=== PATIENT | male | born 1945 | race Caucasian/White ===

== ENCOUNTER → 2017-10-16 | Outpatient (CLI) | payer MEDICARE ==
--- NOTE | 2017-10-17 13:26 | PE ---
Nuclear medicine PET/CT HISTORY: Melanoma, initial Patient received 13.3 mCi F-18 FDG intravenously. Delayed scanning performed through the whole body, an attenuation correction and localization CT scan also performed. No comparisons Head and neck: No suspicious hypermetabolic uptake. No evident adenopathy. CHEST: There is extensive abnormal soft tissue, adenopathy in the right axilla, subpectoral location on the right with associated hypermetabolic uptake, SUV 7-11. Emphysematous changes are present withi n the lungs. There is a right lower lobe lung nodule measuring 12 mm. Additional smaller nodular dens ities are present within the right lung on axial image 137, 131 and 145 and possibly in the left lowe r lobe axial image 138, there is no pleural or pericardial effusion. Heart is borderline enlarged. Th ere are coronary artery calcifications present. Abdomen pelvis: No evident liver mass. No retroperitoneal adenopathy. No suspicious hypermetabolic up take. There is a large cyst associated with the posterior left kidney measuring 5.6 cm. Lower pole ri ght kidney shows an exophytic cyst measuring 5 cm. The urinary bladder shows wall thickening likely d ue to chronic outlet obstruction, prostate is enlarged. No evident adenopathy or suspicious hypermeta bolic uptake Osseous structures shows no suspicious hypermetabolic uptake. Degenerative disc changes are present w ithin the lumbar spine. IMPRESSION: Extensive adenopathy within the right chest as described. Indeterminate lung nodules.
== END | disposition home or self-care (01) ==
LOC: RADPETMAIN 07:03
PROVIDERS: ATTEND Internal Medicine Hematology & Oncology
DX: C43.60 Malignant melanoma of unspecified upper limb, including shoulder (principal); R59.0 Localized enlarged lymph nodes; R91.1 Solitary pulmonary nodule
CPT/HCPCS: 78816; A9552

== ENCOUNTER → 2017-10-25 | Outpatient (CLI) | payer MEDICARE ==
--- NOTE | 2017-10-25 18:45 | MR ---
EXAMINATION TYPE: MR brain wo/w con DATE OF EXAM: 10/25/2017 COMPARISON: Correlation PET/CT 10/16/2017 HISTORY: 71-year-old male history of malignant melanoma, Headache TECHNIQUE: Multiplanar, multisequence images of the brain and brainstem were acquired before and aft er administration of 7.5 mL IV Gadavist. Diffusion weighted imaging is performed. FINDINGS: No evidence for acute infarction, hemorrhage, mass, mass effect, midline shift, herniation, effacemen t of basal cisterns, or extra-axial fluid collection. The ventricles are age-appropriate. There is mild generalized supratentorial volume loss. Dominant right vertebral artery. The left vertebral artery is not well seen. Otherwise, the major int racranial flow voids are intact. T2/FLAIR weighted sequences show moderate to severe patchy and confluent bright signal change within the subcortical, deep, and periventricular regions of both cerebral hemispheres. Additional patchy in creased T2 signal is present in the bilateral paramedian tami. Midline structures demonstrate normal morphology. The craniocervical junction is normal. Post contrast images demonstrate no evidence of pathologic enhancement. Dural venous sinuses are pat ent. Mild mucosal thickening within the ethmoid air cells. Globes are intact. IMPRESSION: 1. No evidence for brain metastases. 2. No acute intracranial abnormality seen. 3. Moderate to severe burden of patchy and confluent bright white matter change likely relating to ch ronic small vessel ischemic disease. 4. The left vertebral artery is not clearly seen. It may be hypoplastic. If concern for arterial occl usion, consider carotid Doppler ultrasound which also evaluates the vertebral arteries in the neck.
== END | disposition home or self-care (01) ==
LOC: RADMRIMAIN 11:53
PROVIDERS: ATTEND Internal Medicine Hematology & Oncology
DX: C43.60 Malignant melanoma of unspecified upper limb, including shoulder (principal); R90.82 White matter disease, unspecified; R51 Headache
CPT/HCPCS: 82565; 70553; 36415; A9581

== ENCOUNTER → 2018-05-03 | Outpatient (CLI) | payer OTHER ==
[2018-05-03 14:39] LABS: Basophils # (A) 0.1 k/uL (0-0.2); Basophils % (A) 1 %; Eosinophils # (A) 0.3 k/uL (0-0.7); Eosinophils % (A) 3 %; HCT 42.2 % (39.0-53.0); Lymphocytes # (A) 2.3 k/uL (1.0-4.8); Lymphocytes % (A) 20 %; MCH 30.9 pg (25.0-35.0); MCHC 33.2 g/dL (31.0-37.0); MCV 93.1 fL (80.0-100.0); Mean Platelet Volume 6.6; Monocytes # (A) 0.8 k/uL (0-1.0); Monocytes % (A) 7 %; Neutrophils % (A) 68 %; Platelet Count 307 k/uL (150-450); RBC 4.54 m/uL (4.30-5.90); RDW 13.5 % (11.5-15.5); WBC 11.7 k/uL (3.8-10.6)
[2018-05-03 19:04] LABS: Anion Gap 5.5 mmol/L (4.00-12.00); Calcium 8.6 mg/dL (8.7-10.3); Carbon Dioxide 30.5 mmol/L (21.6-31.8)
== END | disposition home or self-care (01) ==
LOC: LABWHC1 14:03
PROVIDERS: ATTEND Urology
DX: Z01.812 Encounter for preprocedural laboratory examination (principal); R31.0 Gross hematuria
CPT/HCPCS: 36415; 80048; 85025

== ENCOUNTER → 2018-05-05 | Day surgery (SDC) | payer OTHER ==
[~2018-05-05] MED LIST: DEXAMETHASONE SOD PHOSPHATE 10 MG/ML 1 ML VIAL IV ONE; FUROSEMIDE 10 MG/ML 2 ML VIAL ONE; GLYCOPYRROLATE 0.2 MG/ML 2 ML VIAL ONE; LACTATED RINGERS 1,000 ML IV SCH; LIDOCAINE 1% 20 ML VIAL (10MG/ML) FOR IV START INTRADERMA PRN; LIDOCAINE 1% INJ 10MG/ML (20 ML MDV) ONE; MIDAZOLAM (PF) 2 MG/2 ML VIAL IV PRN; MIDAZOLAM 2 MG/2 ML VIAL ONE; NEOSTIGMINE 1 MG/ML 10 ML VIAL ONE; ONDANSETRON 4 MG/2 ML VIAL IVP ONE; PROPOFOL 10 MG/ML 20 ML VIAL IV ONE; ROCURONIUM BROMIDE 10 MG/ML 10 ML VIAL IV ONE; SCOPOLAMINE 1.5MG/72HR PATCH TRANSDERM ONE; ceFAZolin 1,000 MG in DEXTROSE/WATER 1 50ML.BAG IVPB ONE; ePHEDrine SULFATE/0.9% NACL/PF 50 MG/5 ML SYRINGE IV ONE; fentaNYL (PF) 50 MCG/ML 2 ML AMP IVP ONE; fentaNYL (PF) 50 MCG/ML 2 ML AMP ONE
--- NOTE | 2018-05-05 06:36 | P.GSHP ---
History of Present Illness H&P Date: 05/05/18 Chief Complaint: Hematuria The patient is a 72-year-old male who has experienced gross hematuria since starting Keytruda for treatment of melanoma. A PET computed tomography scan in September 2017 showed bilateral renal cysts and bladder wall thickening. Cystoscopy showed some clot within the bladder, as well as telangiectasia adjacent to the left ureteral orifice. He now comes for cystoscopy, evacuation of clot, and resection of any abnormalities seen. - Cardiovascular Cardiovascular: Reports high blood pressure - Genitourinary (Male) Genitourinary: Reports dysuria, Reports hematuria, Reports urinary frequency, Denies flank pain Past Medical History Past Medical History: GERD/Reflux, Hyperlipidemia, Hypertension Additional Past Medical History / Comment(s): MELANOMA, ARM. HAS BEEN ON K-TRUDA , PT BELIEVES THIS HAS CAUSED HIS BLADDER BLEEDING. History of Any Multi-Drug Resistant Organisms: None Reported Additional Past Surgical History / Comment(s): RIGHT LEG SHRAPNEL REMOVED Past Anesthesia/Blood Transfusion Reactions: No Reported Reaction Past Psychological History: Anxiety Smoking Status: Former smoker Past Alcohol Use History: Daily Additional Past Alcohol Use History / Comment(s): QUIT SMOKER 2002, 1PPD. Past Drug Use History: None Reported Medications and Allergies Home Medications Medication Instructions Recorded Confirmed Type Atenolol [Tenormin] 25 mg PO BID 11/01/13 05/03/18 History Temazepam [Restoril] 15 mg PO HS 11/01/13 05/03/18 History Amlodipine Unknown Dose 1 tab PO BID 05/03/18 History Bismuth Subsalicylate 1 dose PO DIRECTED 05/03/18 05/03/18 History [Pepto-Bismol] Calcium Carbonate [Tums] 1 - 2 tab PO DIRECTED 05/03/18 05/03/18 History Allergies Allergy/AdvReac Type Severity Reaction Status Date / Time No Known Allergies Allergy Verified 05/03/18 15:21 Surgical - Exam - General well developed, well nourished, no distress - Neck no masses, trachea midline - Respiratory normal respiratory effort, clear to auscultation - Cardiovascular Rhythm: regular Abnormal Heart Sounds: no systolic murmur, no diastolic murmur, no rub, no S3 Gallop, no S4 Gallop, no click, no other - Abdomen Abdomen: soft, non tender, no guarding, no rigid, no rebound - Genitourinary normal penis with no external lesions, testicles non-tender right: scrotal mass/hydrocele - Psychiatric oriented to time, oriented to person, oriented to place, speech is normal, memory intact Right axillary adenopathy Assessment and Plan (1) Gross hematuria Status: Acute Code(s): R31.0 - GROSS HEMATURIA SNOMED Code(s): 229999612 Plan: Cystoscopy, evacuation of clot, transurethral resection of any lesions noted. The rationale for this has been reviewed in detail with the patient, both to prevent ongoing hematuria as well as detect any possible malignancy. The procedure was reviewed in detail, including potential risks which include anesthesia, bleeding, infection, and bladder perforation. He also understands the possibility of persistent hematuria.
[2018-05-05] MEDS: HYDROmorphone 0.5 MG/0.5 ML SYRINGE IVP PRN ×2 (12:08→12:15)
[2018-05-05 12:19] VITALS: TEMP 99.2
--- NOTE | 2018-05-05 12:19 | P.OP ---
Date of Procedure: 05/05/18 Preoperative Diagnosis: Gross Hematuria Postoperative Diagnosis: Gross Hematuria, Bladder Tumors Procedure(s) Performed: Cystoscopy, TUR-BT (Large) Anesthesia: DANGA Surgeon: Brian Lincoln Estimated Blood Loss (ml): 30 IV fluids (ml): 1,100 Condition: stable Disposition: PACU Indications for Procedure: The patient is a 72-year-old male who has experienced gross hematuria since starting Keytruda for treatment of melanoma. A PET computed tomography scan in September 2017 showed bilateral renal cysts and bladder wall thickening. Cystoscopy showed some clot within the bladder, as well as telangiectasia adjacent to the left ureteral orifice. He now comes for cystoscopy, evacuation of clot, and resection of any abnormalities seen. Operative Findings: 4 bladder resembling clot, all resected completely. The lesions were vascularized, and somewhat darker than clot, raising the possibility of metastatic melanoma. Description of Procedure: The patient was taken in the operating room and placed in the dorsal lithotomy position, with his legs supported in Neymar stirrups. The external genitalia was prepped and draped sterilely. The urethral meatus was dilated using Joseph sounds, and the 24-Lithuanian Storz resectoscope sheath was introduced into the bladder under direct vision. The urethra was normal, and the prostatic urethra was unremarkable. The bladder was inspected. Both ureteral orifices were of normal anatomic location and configuration. The entire bladder was examined, revealing what appeared to be a clot at the bladder dome. Telangiectasia of the bladder trigone and floor was noted. The Ellik evacuator was utilized, but the clot could not be removed. It then became evident that the "clot" was adherent to the bladder dome. Using the cutting loop, the clot/ tumor was resected down to the muscle. Excellent hemostasis was attained. Closer inspection revealed an additional identical lesion at the bladder dome, a third lesion on the anterior bladder wall just cephalad to the vesical neck, and a fourth lesion on the left lateral bladder wall just cephalad to the vesical neck. The largest lesion was located on the bladder dome, measuring 5- 6 cm in size. The smallest lesion was the left lateral bladder wall lesion, which measured 2-3 cm in size. Each of these lesions were resected down to the superficial muscle. The lesion resembled a clot, but it was evident during the resection that there was blood flow into the lesions. Additionally, the resected tissue appeared darker than normal clot and of a different consistency , raising the possibility that this is metastatic melanoma. The resected tissue was saved and sent for pathologic examination. An 18-Lithuanian Cota catheter was inserted. The return was essentially clear. The patient tolerated the procedure well. He was taken to the recovery room in stable condition.
[2018-05-05 14:18] VITALS: BP 148/90; PULSE 79; RESP 17
== END | disposition home or self-care (01) ==
LOC: OR 09:18
PROVIDERS: ATTEND Urology
DX: C79.11 Secondary malignant neoplasm of bladder (principal); K21.9 Gastro-esophageal reflux disease without esophagitis; E78.5 Hyperlipidemia, unspecified; I10 Essential (primary) hypertension; C43.60 Malignant melanoma of unspecified upper limb, including shoulder; F41.9 Anxiety disorder, unspecified; Z87.891 Personal history of nicotine dependence; I78.1 Nevus, non-neoplastic; N28.1 Cyst of kidney, acquired; Z79.899 Other long term (current) drug therapy
CPT/HCPCS: 52240; 88342; 88307; 88341; J2250; J1100; J1940; J2710; J2405; J2001; J3010; J0690; J2704; J1170

== ENCOUNTER 2018-05-24 15:58 | Emergency (ER) | payer OTHER ==
[2018-05-24 16:23] VITALS: BP 160/80; PULSE 63; RESP 18; TEMP 97.8
--- NOTE | 2018-05-24 17:20 | US ---
EXAMINATION TYPE: US venous doppler duplex LE RT DATE OF EXAM: 05/24/2018 5:05 PM COMPARISON: NONE CLINICAL HISTORY: Pain. right leg pain SIDE PERFORMED: Right TECHNIQUE: The lower extremity deep venous system is examined utilizing real time linear array sonog hiro with graded compression, doppler sonography and color-flow sonography. VESSELS IMAGED: External Iliac Vein (EIV) Common Femoral Vein Deep Femoral Vein Greater Saphenous Vein * Femoral Vein Popliteal Vein Small Saphenous Vein * Proximal Calf Veins (* superficial vessels) FINDINGS: Grayscale, color doppler, spectral doppler imaging performed of the deep veins of the lower extremities. There is normal flow, compressibility, vascular waveforms. IMPRESSION: NEGATIVE FOR DVT, RIGHT LOWER EXTREMITY
--- NOTE | 2018-05-24 19:06 | ED ---
Extremity Problem HPI - General Chief complaint: Extremity Problem,Nontraumatic Stated complaint: foot & leg swelling Time Seen by Provider: 05/24/18 18:01 Source: patient, RN notes reviewed, old records reviewed Mode of arrival: wheelchair Limitations: no limitations - History of Present Illness Initial comments: Patient is a 72-year-old male presents emergency Department today with complaints of right lower extremity swelling. Patient reports that he had surgery for bladder lesions 2 weeks ago. His leg swelling started after that. Patient is concern for blood clot. Patient states that he has swelling from the foot and ankle up to the mid calf. Patient states that he has a history of melanoma. He does report that he has a history of large lymph nodes in his legs and his arms as well. He denies any pain with range of motion and reports normal sensation in all extremities. - Related Data Home Medications Medication Instructions Recorded Confirmed Atenolol [Tenormin] 25 mg PO BID 11/01/13 05/24/18 Aspirin [Children's Aspirin] 40.5 mg PO ONCE PRN 05/24/18 05/24/18 Naproxen Sodium [Aleve] 110 mg PO ONCE PRN 05/24/18 05/24/18 Allergies Allergy/AdvReac Type Severity Reaction Status Date / Time No Known Allergies Allergy Verified 05/24/18 18:09 Review of Systems ROS Statement: Those systems with pertinent positive or pertinent negative responses have been documented in the HPI. ROS Other: All systems not noted in ROS Statement are negative. Past Medical History Past Medical History: GERD/Reflux, Hyperlipidemia, Hypertension, Osteoarthritis (OA) Additional Past Medical History / Comment(s): MELANOMA, ARM. HAS BEEN ON K-TRUDA , PT BELIEVES THIS HAS CAUSED HIS BLADDER BLEEDING. History of Any Multi-Drug Resistant Organisms: None Reported Additional Past Surgical History / Comment(s): RIGHT LEG SHRAPNEL REMOVED Past Anesthesia/Blood Transfusion Reactions: No Reported Reaction Past Psychological History: Anxiety Smoking Status: Former smoker Past Alcohol Use History: None Reported Past Drug Use History: None Reported General Exam - General Exam Comments Initial Comments: This is a pleasant 72-year-old male. Alert and oriented 3. Limitations: no limitations General appearance: alert, in no apparent distress Head exam: Present: atraumatic, normocephalic, normal inspection Eye exam: Present: normal appearance, PERRL, EOMI. Absent: scleral icterus, conjunctival injection, periorbital swelling ENT exam: Present: normal exam, mucous membranes moist Neck exam: Present: normal inspection. Absent: tenderness, meningismus, lymphadenopathy Respiratory exam: Present: normal lung sounds bilaterally. Absent: respiratory distress, wheezes, rales, rhonchi, stridor Cardiovascular Exam: Present: regular rate, normal rhythm, normal heart sounds. Absent: systolic murmur, diastolic murmur, rubs, gallop, clicks GI/Abdominal exam: Present: soft, normal bowel sounds. Absent: distended, tenderness, guarding, rebound, rigid Extremities exam: Present: normal inspection, full ROM, normal capillary refill , pedal edema (Patient has 4+ pedal edema on the right foot and ankle. Normal dorsalis pedis and posterior tibial pulses. Less than 2 second capillary refill.), other (Patient has an enlarged right t axillary lymph node.). Absent : tenderness, joint swelling, calf tenderness Back exam: Present: normal inspection Neurological exam: Present: alert, oriented X3, CN II-XII intact Psychiatric exam: Present: normal affect, normal mood Skin exam: Present: warm, dry, intact, normal color. Absent: rash Course Vital Signs 05/24/18 16:21 Temperature 97.8 F Pulse Rate 63 Respiratory 18 Rate Blood Pressure 160/80 O2 Sat by Pulse 100 Oximetry Medical Decision Making - Medical Decision Making Patient is a 72-year-old male who presents emergency department today with complaints of right lower extremity swelling. He is initially concerned for a blood clot has a sister weeks post surgical that he had the swelling. Patient has enlarged inguinal and right axillary lymph nodes. This is due to his melanoma. Ultrasound was completed and negative for DVT. He has no overlying skin changes. I discussed the patient's leg edema is likely related to a lymph node malfunction due to metastases. I did discuss with the Patient needs follow -up with his oncologist and his PCP. Patient agrees to treatment plan will comply. Return parameters were discussed. Given the compression stocking. - Radiology Data Radiology results: report reviewed Doppler ultrasound of the lower right lower extremity is negative for DVT. Disposition Clinical Impression: Leg edema, right Disposition: HOME SELF-CARE Condition: Good Instructions (If sedation given, give patient instructions): Leg Edema (ED) Additional Instructions: Advised to keep leg up and elevated. Wear the compression stocking. Return to the emergency department if any alarming signs or symptoms occur. Follow-up with Dr. Estrada and your primary care physician. Is patient prescribed a controlled substance at d/c from ED?: No Referrals: [facility],Clinic [Primary Care Provider] - 1-2 days Time of Disposition: 19:05
== END 2018-05-24 19:24 | disposition home or self-care (01) ==
LOC: EC 15:58
DX: R60.0 Localized edema (principal); I10 Essential (primary) hypertension; Z79.899 Other long term (current) drug therapy; Z87.891 Personal history of nicotine dependence; Z85.820 Personal history of malignant melanoma of skin
CPT/HCPCS: 99284

== ENCOUNTER → 2018-06-10 | Outpatient (CLI) | payer OTHER ==
[2018-06-10 15:25] LABS: Blood Urea Nitrogen 16 mg/dL (9-20)
--- NOTE | 2018-06-13 08:43 | CT ---
"EXAMINATION TYPE: CT ChestAbdPelvis w con DATE OF EXAM: 06/10/2018 INDICATION: Melanoma. Observation for metastatic disease COMPARISON: No comparisons. In discussion with the office, only imaging is performed at [facility]. Review of the localization CT of the PET scan of 10/16/[address] DLP: 957.7 mGycm CONTRAST: Performed with Oral Contrast and with IV Contrast, patient injected with 100 mL of Isovue 300. TECHNIQUE: Axial images at 5 mm thick sections. Reconstructed images in the coronal plane. Delayed images through the kidneys. FINDINGS: CT CHEST: Right axillary region is a large mass area which could be enlarged matted adenopathy. This is estimated to measure 4.8 x 4.6 cm. Portion of the thyroid visualized is normal. Hiatal hernia is present. Numerous pulmonary nodules are present within the bilateral lungs. Couple of these were present previ ously. A larger notable nodules would include a right middle lobe nodule measuring 1.1 cm, series 3 i mage 36. A 1.9 x 1.7 cm nodule along the area of increasing density along the posterior superior segm ent right lower lobe. Series 3 image 34 a 1.2 cm nodule in the posterior right midlung. Series 3 imag e 32. Largest nodule on the left is at the posterior medial left lung base measuring 0.8 cm. Series 3 image 48. 2 numerous to count additional smaller nodules are present bilaterally. Repeat PET/CT is r ecommended to reevaluate for suspected metastasis. There is a left suprahilar mass 1.4 x 2.3 cm. Series 3 image 25. There is a small peribronchial lymph node on the right measuring 0.7 cm. Small anterior mediastinal lymph node is present measuring 0.8 c m. Small pretracheal lymphadenopathy is present. The ascending aorta diameter at the level of the main pulmonary artery is 3.4 cm. The main pulmonary artery diameter at the bifurcation is 2.[address] ABDOMEN: There is a soft tissue nodule within the right retroperitoneal region. Series 3 image 77. Multiple small nodules are along the right paracolic gutter. The largest measures 1.0 cm, series 3 image 73. Additional lymph nodes or nodules are scattered within the mesentery. Liver: There may be a couple of hypodensities within the right lobe liver measuring 1.1-0.8 cm. Serie s 3 image 52. Metastatic disease is not excluded. Spleen: There are patchy hypodensities throughout the spleen. The largest of these measures 2.9 and 2 .3 cm in size and are an interval finding suspicious for metastatic disease. Pancreas: Normal Adrenal glands: The adrenal glands are normal. Gallbladder: Normal Kidneys: No masses are evident. There is a hyperdense area adjacent to but not clearly extending from the superior cortex of the medial right kidney. This measures 1.0 cm. No hydronephrosis is present. There is a 4.9 cm cyst at the inferior pole right kidney measuring 3 Hounsfield units. A 5.6 cm cys t measuring 5 Hounsfield units on the posterior lateral mid left kidney. Aorta: Vascular calcification is within the aorta. Inferior vena cava: Normal. CT PELVIS: Loops of bowel within the abdomen and pelvis are normal. There are loops of bowel which are incom pletely distended or lack oral contrast limiting their evaluation. Diverticular changes are through t he sigmoid colon. Appendix: Normal as visualized. Urinary bladder: There is some hyperdense areas within the urinary bladder. Contrast through the terr itory system of the kidneys is not clearly identified. This could be calcification. This was not iden tified previously. Genitourinary structures: Prostate is prominent. Osseous structures: No suspicious lytic or sclerotic lesions. Degenerative facet changes and degenera tive disc changes are within the lower lumbar spine. IMPRESSIONS: 1. Extensive findings compatible with metastatic disease. PET/CT could be performed for additional de lineation. 2. Multiple pulmonary nodules too numerous to count through the lung bolivar. 3. Multiple nodules scattered within the mesentery as well as retroperitoneal and subcutaneous tissue s. 4. Splenic masses and heterogeneity. There may be hepatic metastasis present. 5. Right axillary mass. Recommendations: 1. PET CT is recommended to reevaluate extensive disease A Brooks level critical message alert has been initiated for Syed Estrada MD via the [employer] 36 0 | Critical Results System on 06/13/2018 8:40 AM. This message alert has been sent to Syed Estrada MD via the preferences provided by the clinician for the receipt of Radiology Critical Findings. [facility] ID [id number]."
== END ==
LOC: RADCTMAIN 14:46
PROVIDERS: ATTEND Internal Medicine Hematology & Oncology
DX: C43.60 Malignant melanoma of unspecified upper limb, including shoulder (principal); R91.8 Other nonspecific abnormal finding of lung field
CPT/HCPCS: 82565; 84520; 71260; 74177; 36415; Q9967

== ENCOUNTER 2018-07-13 16:05 | Inpatient (IN) | payer OTHER, MEDICARE ==
[2018-07-13] MEDS ORDERED: PANTOPRAZOLE 40 MG/10 ML VIAL IVP STA (17:35)
--- NOTE | 2018-07-13 17:38 | ED ---
General Adult HPI - General Chief complaint: GI Bleed Stated complaint: Rectal Bleeding Time Seen by Provider: 07/13/18 16:39 Source: patient, RN notes reviewed Mode of arrival: wheelchair Limitations: no limitations - History of Present Illness Initial comments: Patient is a pleasant 72-year-old male presents emergency Department with anemia. Patient was sent over by oncology. Patient has been having black and bloody stools over the past week or 2. Blood level today was 7.6. Patient is having fatigue. Patient has exertional dyspnea. Patient is currently on chemotherapy for malignant melanoma. No vomiting. Patient does have some abdominal discomfort described as cramping prior to onset of rectal bleeding. Patient states he does have these episodes multiple times throughout the day. - Related Data Home Medications Medication Instructions Recorded Confirmed Atenolol [Tenormin] 50 mg PO HS 07/13/18 07/13/18 Diphenox-Atrop 2.5-0.025 mg 1 - 2 tab PO QID PRN 07/13/18 07/13/18 [Lomotil] Tamsulosin [Flomax] 0.4 mg PO DAILY 07/13/18 07/13/18 amLODIPine [Norvasc] 5 mg PO DAILY 07/13/18 07/13/18 Allergies Allergy/AdvReac Type Severity Reaction Status Date / Time No Known Allergies Allergy Verified 07/13/18 16:53 Review of Systems ROS Statement: Those systems with pertinent positive or pertinent negative responses have been documented in the HPI. ROS Other: All systems not noted in ROS Statement are negative. Constitutional: Denies: fever Eyes: Denies: eye pain ENT: Denies: ear pain Respiratory: Reports: as per HPI Cardiovascular: Denies: chest pain Endocrine: Reports: fatigue Gastrointestinal: Reports: as per HPI, melena, hematochezia Genitourinary: Denies: dysuria Musculoskeletal: Denies: back pain Skin: Denies: rash Neurological: Denies: headache Past Medical History Past Medical History: GERD/Reflux, Hyperlipidemia, Hypertension, Osteoarthritis (OA) Additional Past Medical History / Comment(s): MELANOMA, ARM. HAS BEEN ON K-TRUDA , PT BELIEVES THIS HAS CAUSED HIS BLADDER BLEEDING. History of Any Multi-Drug Resistant Organisms: None Reported Additional Past Surgical History / Comment(s): RIGHT LEG SHRAPNEL REMOVED Past Anesthesia/Blood Transfusion Reactions: No Reported Reaction Past Psychological History: Anxiety Smoking Status: Former smoker Past Alcohol Use History: None Reported Past Drug Use History: None Reported General Exam Limitations: no limitations General appearance: alert, in no apparent distress Eye exam: Present: other (Pale conjunctival) ENT exam: Present: normal oropharynx Neck exam: Present: normal inspection Respiratory exam: Present: normal lung sounds bilaterally Cardiovascular Exam: Present: regular rate, normal rhythm GI/Abdominal exam: Present: soft. Absent: distended, tenderness Extremities exam: Present: normal inspection Neurological exam: Present: alert Psychiatric exam: Present: normal affect, normal mood Skin exam: Present: pallor Course Vital Signs 07/13/18 16:20 Temperature 97.8 F Pulse Rate 74 Respiratory 16 Rate Blood Pressure 124/71 O2 Sat by Pulse 100 Oximetry Medical Decision Making - Medical Decision Making Patient reevaluated and updated. Dr. Wells has been paged for [facility]. - Lab Data Result diagrams: 07/13/18 16:47 07/13/18 16:47 Lab Results 07/13/18 07/13/18 07/13/18 Range/Units 16:47 16:47 16:47 WBC 8.7 (3.8-10.6) k/uL RBC 3.17 L (4.30-5.90) m/uL Hgb 7.4 L (13.0-17.5) gm/dL Hct 25.2 L (39.0-53.0) % MCV 79.5 L (80.0-100.0) fL MCH 23.4 L (25.0-35.0) pg MCHC 29.5 L (31.0-37.0) g/dL RDW 15.7 H (11.5-15.5) % Plt Count 525 H (150-450) k/uL Neutrophils % 61 % Lymphocytes % 25 % Monocytes % 7 % Eosinophils % 5 % Basophils % 1 % Neutrophils # 5.3 (1.3-7.7) k/uL Lymphocytes # 2.1 (1.0-4.8) k/uL Monocytes # 0.6 (0-1.0) k/uL Eosinophils # 0.4 (0-0.7) k/uL Basophils # 0.1 (0-0.2) k/uL Hypochromasia Marked Poikilocytosis Slight PT 11.0 (9.0-12.0) sec INR 1.0 (<1.2) APTT 23.0 (22.0-30.0) sec Sodium 138 (137-145) mmol/L Potassium 4.4 (3.5-5.1) mmol/L Chloride 107 (98-107) mmol/L Carbon Dioxide 23 (22-30) mmol/L Anion Gap 8 mmol/L BUN 9 (9-20) mg/dL Creatinine 0.98 (0.66-1.25) mg/dL Est GFR (CKD-EPI)AfAm 89 (>60 ml/min/1.73 sqM) Est GFR (CKD-EPI)NonAf 77 (>60 ml/min/1.73 sqM) Glucose 93 (74-99) mg/dL Calcium 8.4 (8.4-10.2) mg/dL Total Bilirubin 0.3 (0.2-1.3) mg/dL AST 27 (17-59) U/L ALT 25 (21-72) U/L Alkaline Phosphatase 91 (38-126) U/L Total Protein 5.3 L (6.3-8.2) g/dL Albumin 2.8 L (3.5-5.0) g/dL Stool Occult Blood (Negative) 07/13/18 Range/Units 18:05 WBC (3.8-10.6) k/uL RBC (4.30-5.90) m/uL Hgb (13.0-17.5) gm/dL Hct (39.0-53.0) % MCV (80.0-100.0) fL MCH (25.0-35.0) pg MCHC (31.0-37.0) g/dL RDW (11.5-15.5) % Plt Count (150-450) k/uL Neutrophils % % Lymphocytes % % Monocytes % % Eosinophils % % Basophils % % Neutrophils # (1.3-7.7) k/uL Lymphocytes # (1.0-4.8) k/uL Monocytes # (0-1.0) k/uL Eosinophils # (0-0.7) k/uL Basophils # (0-0.2) k/uL Hypochromasia Poikilocytosis PT (9.0-12.0) sec INR (<1.2) APTT (22.0-30.0) sec Sodium (137-145) mmol/L Potassium (3.5-5.1) mmol/L Chloride (98-107) mmol/L Carbon Dioxide (22-30) mmol/L Anion Gap mmol/L BUN (9-20) mg/dL Creatinine (0.66-1.25) mg/dL Est GFR (CKD-EPI)AfAm (>60 ml/min/1.73 sqM) Est GFR (CKD-EPI)NonAf (>60 ml/min/1.73 sqM) Glucose (74-99) mg/dL Calcium (8.4-10.2) mg/dL Total Bilirubin (0.2-1.3) mg/dL AST (17-59) U/L ALT (21-72) U/L Alkaline Phosphatase (38-126) U/L Total Protein (6.3-8.2) g/dL Albumin (3.5-5.0) g/dL Stool Occult Blood Positive (Negative) - Radiology Data Radiology results: image reviewed (X-ray shows nonacute abdomen) Disposition Clinical Impression: Lower gastrointestinal hemorrhage Disposition: ADMITTED IP TO THIS HOSP Is patient prescribed a controlled substance at d/c from ED?: No Referrals: [facility],Clinic [Primary Care Provider] - 1-2 days Decision Time: 19:03
[2018-07-13 18:02] LABS: Basophils # (A) 0.1 k/uL (0-0.2); Basophils % (A) 1 %; Eosinophils # (A) 0.4 k/uL (0-0.7); Eosinophils % (A) 5 %; HCT 25.2 % (39.0-53.0); HGB 7.4 gm/dL (13.0-17.5); Hypochromasia Marked; Lymphocytes # (A) 2.1 k/uL (1.0-4.8); Lymphocytes % (A) 25 %; MCH 23.4 pg (25.0-35.0); MCHC 29.5 g/dL (31.0-37.0); MCV 79.5 fL (80.0-100.0); Mean Platelet Volume 7.1; Monocytes # (A) 0.6 k/uL (0-1.0); Monocytes % (A) 7 %; Neutrophils # (A) 5.3 k/uL (1.3-7.7); Neutrophils % (A) 61 %; Platelet Count 525 k/uL (150-450); Poikilocytosis Slight; RBC 3.17 m/uL (4.30-5.90); RDW 15.7 % (11.5-15.5); WBC 8.7 k/uL (3.8-10.6)
[2018-07-13 18:07] LABS: Albumin 2.8 g/dL (3.5-5.0); Calcium 8.4 mg/dL (8.4-10.2); Potassium 4.4 mmol/L (3.5-5.1); Total Bilirubin 0.3 mg/dL (0.2-1.3); Total Protein 5.3 g/dL (6.3-8.2)
--- NOTE | 2018-07-13 18:12 | XR ---
EXAMINATION TYPE: XR abdomen 1V DATE OF EXAM: 07/13/2018 COMPARISON: NONE HISTORY: Bloody stools TECHNIQUE: 2 views upright FINDINGS: There is no sign of intestinal obstruction or pneumoperitoneum. Fecal pattern is normal. Alis ng bases are clear. There is some minimal calcification over the right kidney. There is no evidence o f a mass. IMPRESSION: Nonacute abdomen. 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
[2018-07-13] MEDS ORDERED: NALOXONE 0.4 MG/ML 1 ML VIAL IV PRN (19:08)
[2018-07-13] MEDS ORDERED: PANTOPRAZOLE 40 MG/10 ML VIAL IV SCH (19:15)
[2018-07-13] MEDS ORDERED: SODIUM CHLORIDE 0.9% 1,000 ML IV SCH (19:15)
[2018-07-13] MEDS ORDERED: traMADol 50 MG TAB PO PRN (19:59)
[2018-07-13 20:47] VITALS: BMI 25.8
[2018-07-13] MEDS ORDERED: TEMAZEPAM 15 MG CAP PO PRN (21:44)
[2018-07-13] MEDS ORDERED: ONDANSETRON 4 MG/2 ML VIAL IVP PRN (21:44)
[2018-07-14 05:26] VITALS: BP 130/83; PULSE 81; RESP 16; TEMP 97.8
[2018-07-14 07:44] LABS: Basophils # (A) 0.1 k/uL (0-0.2); Basophils % (A) 1 %; Eosinophils # (A) 0.4 k/uL (0-0.7); Eosinophils % (A) 4 %; HCT 25.1 % (39.0-53.0); HGB 7.2 gm/dL (13.0-17.5); Hypochromasia Marked; Lymphocytes # (A) 2.1 k/uL (1.0-4.8); Lymphocytes % (A) 24 %; MCHC 28.6 g/dL (31.0-37.0); MCV 80.5 fL (80.0-100.0); Mean Platelet Volume 6.6; Monocytes # (A) 0.7 k/uL (0-1.0); Monocytes % (A) 8 %; Neutrophils # (A) 5.4 k/uL (1.3-7.7); Neutrophils % (A) 61 %; Platelet Count 477 k/uL (150-450); Poikilocytosis Slight; RBC 3.12 m/uL (4.30-5.90); WBC 8.8 k/uL (3.8-10.6)
[2018-07-14] MEDS ORDERED: amLODIPine 5 MG TAB PO SCH (09:00)
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
== END 2018-07-14 09:20 | disposition left against medical advice (07) | DRG 378 ==
LOC: EC 16:05 → 3NMEDONC 19:08
PROVIDERS: ADMIT Internal Medicine; ATTEND Internal Medicine
DX: K92.2 Gastrointestinal hemorrhage, unspecified (principal); C78.6 Secondary malignant neoplasm of retroperitoneum and peritoneum; D62 Acute posthemorrhagic anemia; C43.9 Malignant melanoma of skin, unspecified; E78.5 Hyperlipidemia, unspecified; I10 Essential (primary) hypertension; K21.0 Gastro-esophageal reflux disease with esophagitis; K22.70 Barrett's esophagus without dysplasia; K44.9 Diaphragmatic hernia without obstruction or gangrene; Z79.899 Other long term (current) drug therapy; Z87.891 Personal history of nicotine dependence
CPT/HCPCS: 36415; 74018; 80053; 82272; 85025; 85610; 85730; 96374; 99285

== ENCOUNTER → 2018-11-09 | Outpatient (CLI) | payer OTHER | END | disposition home or self-care (01) | DX: Z53.9 Procedure and treatment not carried out, unspecified reason (principal) ==

== ENCOUNTER 2018-11-10 13:52 | Inpatient (IN) | payer OTHER, MEDICARE ==
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
[2018-11-10] MEDS ORDERED: cefTRIAXone IN SWFI 1,000 MG/10 ML SYRINGE IVP STA (14:41)
[2018-11-10] MEDS ORDERED: Acetaminophen-Codeine 300-30mg TAB PO STA (14:47)
--- NOTE | 2018-11-10 14:51 | XR ---
EXAMINATION TYPE: XR foot limited RT DATE OF EXAM: 11/10/2018 CLINICAL HISTORY: Right foot pain TECHNIQUE: Frontal and lateral images of the right foot are obtained. COMPARISON: None FINDINGS: There is no acute fracture/dislocation evident in the right foot. Severe narrowing with bailey bchondral cystic change first metatarsophalangeal joint is seen, there is mild to moderate spurring m ost prominent along dorsal surface of the first metatarsal head. Moderate soft tissue swelling at thi s level is present. There is small to moderate size inferior calcaneal spur noted. IMPRESSION: As above.
[2018-11-10] MEDS ORDERED: SODIUM CHLORIDE 0.9% 1,000 ML IV STA (15:08)
[2018-11-10 15:12] LABS: Anisocytosis Slight; Basophils # (A) 0.1 k/uL (0-0.2); Basophils % (A) 1 %; Eosinophils # (A) 0.1 k/uL (0-0.7); Eosinophils % (A) 2 %; HCT 39.3 % (39.0-53.0); HGB 11.6 gm/dL (13.0-17.5); Hypochromasia Marked; Lymphocytes # (A) 1.4 k/uL (1.0-4.8); Lymphocytes % (A) 15 %; MCH 22.4 pg (25.0-35.0); MCHC 29.4 g/dL (31.0-37.0); Mean Platelet Volume 6.9; Microcytosis Slight; Monocytes # (A) 0.4 k/uL (0-1.0); Monocytes % (A) 4 %; Neutrophils # (A) 7.1 k/uL (1.3-7.7); Neutrophils % (A) 77 %; Platelet Count 415 k/uL (150-450); RBC 5.17 m/uL (4.30-5.90); RDW 18.2 % (11.5-15.5); WBC 9.2 k/uL (3.8-10.6)
[2018-11-10 15:24] LABS: ALT 18 U/L (21-72); AST 22 U/L (17-59); African American GFR (CKD) >90 (>60 ml/min/1.73 sqM); Alkaline Phosphatase 82 U/L (38-126); Anion Gap 10 mmol/L; Blood Urea Nitrogen 13 mg/dL (9-20); Calcium 9.3 mg/dL (8.4-10.2); Carbon Dioxide 23 mmol/L (22-30); Chloride 105 mmol/L (98-107); Glucose 113 mg/dL (74-99); Potassium 4.6 mmol/L (3.5-5.1); Sodium 138 mmol/L (137-145); Total Bilirubin 0.4 mg/dL (0.2-1.3); Total Protein 6.5 g/dL (6.3-8.2)
[2018-11-10] MEDS ORDERED: VANCOMYCIN IV PER PHARMACY 1 EACH MISC MISCELLANE PRN (15:49)
[2018-11-10] MEDS ORDERED: ONDANSETRON 4 MG/2 ML VIAL IVP PRN (15:49)
[2018-11-10] MEDS ORDERED: MORPHINE SULFATE 4 MG/ML SYRINGE IVP STA (15:49)
[2018-11-10] MEDS ORDERED: ONDANSETRON 4 MG/2 ML VIAL IVP STA (15:49)
[2018-11-10] MEDS ORDERED: VANCOMYCIN 1,500 MG in SODIUM CHLORIDE 0.9% 250 ML IVPB STA (15:54)
[2018-11-10 17:52] VITALS: BMI 25.0
[2018-11-10] MEDS ORDERED: FLUTICASONE 50MCG/SPRAY NASAL 16GM EA NOSTRIL PRN (19:24)
[2018-11-10] MEDS: MORPHINE SULFATE 4 MG/ML SYRINGE IVP PRN (20:11)
[2018-11-10] MEDS: ATENOLOL 25 MG TAB PO SCH (20:11)
[2018-11-10] MEDS ORDERED: MELATONIN 3 MG TABLET PO SCH (21:00)
[2018-11-11] MEDS: MORPHINE SULFATE 4 MG/ML SYRINGE IVP PRN ×3 (00:17→08:18)
[2018-11-11 00:39] VITALS: PULSE 63
--- NOTE | 2018-11-11 01:23 | CONS ---
CONSULTATION This is a 73-year-old gentleman who came to the emergency room with history of black right foot 5th toe for the past 1-1/2 months. The patient went to see Dr. Diaz for opinion and was referred to the emergency room. The patient has history of melanoma of the right upper arm. He was treated with chemotherapy by Dr. Estrada. Chemotherapy also caused the hematuria and colitis and was treated by the by urologist, Dr. Lincoln. MEDICAL HISTORY: No history of diabetes. PHYSICAL EXAMINATION: Patient was seen in his room. NECK: Supple. Trachea central. CHEST: Clear. ABDOMEN: Soft. Vascular examination: Femorals are 2+ and dorsal pedis, posterior tibial is palpable. Patient has a decent circulation on the right leg. The right 5th toe has gangrene and the that 5th toes is black. Patient had an x-ray of the foot which showed acute fracture and dislocation of the right foot first metatarsophalangeal joint. RECOMMENDATIONS: Patient has this gangrene of the right foot 5th toe for the last 1 month. This is not salvageable. The patient is requesting for possible hyperbaric chamber or some kind of digital transplant to his right foot 5th toe. At this point, hyperbaric chamber will not heal the gangrene toe and my recommendation is to go for a right 5th toe amputation. The patient wants to wait and have a possibility of treating with hyperbaric chamber or transplant of the 5th toe. If the patient agrees, we will proceed with the amputation of the right foot 5th toe. I will discuss with Dr. Wells about this patient. MMODL / IJN: [id number] /
[2018-11-11] MEDS ORDERED: VANCOMYCIN 1,500 MG in SODIUM CHLORIDE 0.9% 250 ML IVPB SCH (06:00)
[2018-11-11] MEDS: ATENOLOL 25 MG TAB PO SCH (08:18)
[2018-11-11 08:29] VITALS: BP 147/62; RESP 12; TEMP 98
[2018-11-11 08:35] LABS: African American GFR (CKD) >90 (>60 ml/min/1.73 sqM)
[2018-11-11] MEDS ORDERED: MULTIVITAMINS, THERA 1 EACH TAB PO SCH (09:00)
[2018-11-11] MEDS ORDERED: ENOXAPARIN 40 MG/0.4 ML SYRINGE SQ SCH (09:00)
[2018-11-11] MEDS ORDERED: CALCIUM CARBONATE 500 MG CHEWABLE PO PRN (11:58)
[2018-11-11] MEDS ORDERED: traMADol-ACETAMINOP 37.5-325MG 1 EACH TAB PO PRN (11:59)
--- NOTE | 2018-11-11 15:35 | P.DS ---
Providers Date of admission: 11/10/18 15:49 Expected date of discharge: 11/11/18 Attending physician: Israel Wells Consults: 11/10/18 15:49 Consult Physician Routine Consulting Provider: Clay Ramirez Consult Reason/Comments: dry gangrene Do you want consulting provider notified?: Yes 11/10/18 19:30 Consult Physician Routine Consulting Provider: Cristian Wahl Consult Reason/Comments: Right toe necrosis Do you want consulting provider notified?: Yes Primary care physician: [facility] Hospital Course: Final diagnosis Dry gangrene of the right foot fifth toe History of melanoma of the right upper arm Discharge disposition The patient is being discharged in a stable condition with guarded prognosis to home and will follow-up with Dr. Ramirez. History of present illness This is a 73-year-old male who was admitted for a black right foot fifth toe with gangrene. Patient was seen by Dr. Ramirez and discussion of an amputation was had and the patient at this time did not want to proceed with the amputation and would like to try hyperbaric treatment or some sort of digital transplant of that fifth toe on the right foot. Patient denies any chest pain, shortness of breath, or palpitations at this time and would like to go home. Patient remained afebrile. The patient was given a prescription for doxycycline per Dr. Wahl's recommendations. Patient was on IV antibiotics during his hospital course. Patient is being discharged home and is currently stable with a guarded prognosis. On exam vital signs are stable. Blood pressure is 147/62 respirations are 12 and non-labored, temperature is 90.8F, pulse is 63, oxygen saturation is 100% on room air. Cardio S1 and S2 are normal. Respiratory system is clear to auscultation. Abdomen is soft and non-tender. Nervous system shows no focal deficits and gait is steady. Please refer to medication reconciliation sheet for list of medications. Patient Condition at Discharge: Stable Plan - Discharge Summary New Discharge Prescriptions: New Doxycycline Hyclate 100 mg PO BID #20 tab Continue Multivitamins, Thera [Multivitamin (formulary)] 1 tab PO DAILY Fluticasone Nasal [place] [Flonase Nasal [place]] 1 - 2 spray EA NOSTRIL BID PRN PRN Reason: Allergy Symptoms Atenolol [Tenormin] 25 mg PO BID Discontinued Sulfamethox-Tmp 800-160Mg [Bactrim DS 800-160 mg] 1 tab PO Q12HR Discharge Medication List Atenolol [Tenormin] 25 mg PO BID 11/10/18 [History] Fluticasone Nasal [place] [Flonase Nasal [place]] 1 - 2 spray EA NOSTRIL BID PRN 11/10/18 [History] Multivitamins, Thera [Multivitamin (formulary)] 1 tab PO DAILY 11/10/18 [History] Doxycycline Hyclate 100 mg PO BID #20 tab 11/11/18 [Rx] Follow up Appointment(s)/Referral(s): Clay Ramirez MD [STAFF PHYSICIAN] - 11/15/18 11:00 am [facility],Clinic [Primary Care Provider] - 1-2 days (Office will be in contact with patient upon discharge to set up a follow up appointment) Patient Instructions/Handouts: Gangrene (DC) Activity/Diet/Wound Care/Special Instructions: Activity limited until follow-up continue current diet continue antibiotics until finished follow up with primary care provider this week. Discharge Disposition: HOME SELF-CARE
--- NOTE | 2018-11-11 17:41 | HP ---
HISTORY AND PHYSICAL HISTORY AND PHYSICAL EXAMINATION/DISCHARGE: This is a combined history and physical examination/discharge summary DATE OF SERVICE: 11/11/2018 CHIEF COMPLAINT: Black toe on the right 5th little toe. HISTORY OF PRESENT ILLNESS: This 73-year-old gentleman with a past medical history of multiple problems including hypertension, hyperlipidemia, history of GERD, history of DJD, history of melanoma, being followed by Dr. Lynn in the [facility] in the outpatient setting is also receiving chemotherapy for melanoma last year. The patient is complaining of black discoloration of the right 5th toe and the patient came to [place], was admitted for further evaluation and treatment. Dr. Ramirez from vascular surgery is recommending amputation, however, the patient is not willing for the same at this time and Dr. Wahl was also evaluating the patient for Infectious Disease and recommended outpatient antibiotics. There is no history of fever, rigors or chills. No history of headache, loss of consciousness, seizures. Patient is extremely keen on going home at this time. PAST MEDICAL HISTORY: History of melanoma, GERD, hypertension, hyperlipidemia, history of anxiety. MEDICATIONS: Prior to admission include home medications are: 1. Multivitamins 1 p.o. daily. 2. Flonase 1-2 sprays daily p.r.n. 3. Tenormin 25 mg p.o. b.i.d. 4. Doxycycline 100 mg p.o. b.i.d. ALLERGIES: ADHESIVE TAPES, KEFLEX, FENTANYL. FAMILY HISTORY: No history of heart disease or strokes in the family. SOCIAL HISTORY: No history of smoking. No history of alcohol intake. REVIEW OF SYSTEMS: ENT: No diminished vision. No diminished hearing. CARDIOVASCULAR: No angina or palpitations. RESPIRATORY: As mentioned earlier. GI: No nausea. No vomiting. No diarrhea. no dysuria. CENTRAL NERVOUS SYSTEM: No numbness, weakness. ALLERGY/IMMUNOLOGY: No asthma or hayfever. MUSCULOSKELETAL as mentioned earlier. HEMATOLOGY/ONCOLOGY: No history of anemia. ENDOCRINE: No history of diabetes or hypothyroidism. CONSTITUTIONAL: As mentioned earlier. DERMATOLOGY: Negative. RHEUMATOLOGY negative. PSYCHIATRY as mentioned earlier. PHYSICAL EXAM: Patient is alert, oriented x3. The pulse is 63, blood pressure 153/82, respiration 14, temperature 97.7, pulse ox 97% on room air. HEENT: Conjunctivae normal. NECK: No JVD. CARDIOVASCULAR: S1, S2 muffled. RESPIRATORY: Breath sounds diminished in the bases. No rhonchi. No crackles. ABDOMEN: Soft, nontender. No mass palpable. LEGS: Right leg is tender and right 5th toe black colored and possible dry gangrene present. NERVOUS SYSTEM: Higher functions as mentioned earlier. Moves all four limbs. No focal motor or sensory deficits. Lymphatics: No lymph nodes palpable in the neck, axillae or groin. SKIN as mentioned earlier. JOINTS: No active deforming arthropathy. LAB STUDIES: WBC 9.2, hemoglobin 11.6 and glucose 113. ASSESSMENT: 1. Right 5th toe dry gangrene. 2. Anemia, microcytic of undetermined etiology. 3. History of chemotherapy for melanoma. 4. Gastroesophageal reflux disease. 5. Hypertension. 6. Hyperlipidemia. 7. History of degenerative joint disease. 8. History of anxiety. RECOMMENDATIONS AND DISCUSSION: This 73-year-old gentleman who presented with multiple medical problems at this time I recommend to continue the current medications, symptomatic treatment. Otherwise, the patient is keen on going home at this time and Dr. Wahl has seen the patient and recommended the patient will be discharged in stable condition with the following advice and medications. DISCHARGE INSTRUCTIONS/MEDICATIONS: 1. Diet is cardiac diet. 2. Activity limited until followup. 3. Follow up with Dr. Lynn in 2-3 days. 4. Follow up with Dr. Ramirez and Dr. Wahl as advised. DISCHARGE MEDICATIONS: 1. Fluticasone nasal spray. 2. Multivitamins 1 p.o. daily. 3. Tenormin 25 mg p.o. b.i.d. 4. Doxycycline 100 mg p.o. b.i.d. for 10 days. Once again the patient will be discharged in stable condition with guarded prognosis. MMODL / IJN: [id number] /
[2018-11-12] MEDS ORDERED: VANCOMYCIN TROUGH DUE 1 EACH MISC MISCELLANE ONE (17:00)
== END 2018-11-11 13:47 | disposition home or self-care (01) | DRG 301 ==
LOC: EC 13:52 → 4MS4W 15:49 → 4SSUR 16:58
PROVIDERS: ADMIT Hospitalist; ATTEND Hospitalist
DX: I96 Gangrene, not elsewhere classified (principal); D50.9 Iron deficiency anemia, unspecified; E78.5 Hyperlipidemia, unspecified; I10 Essential (primary) hypertension; K21.9 Gastro-esophageal reflux disease without esophagitis; F41.9 Anxiety disorder, unspecified; M19.90 Unspecified osteoarthritis, unspecified site; Z85.820 Personal history of malignant melanoma of skin; Z87.891 Personal history of nicotine dependence; Z92.21 Personal history of antineoplastic chemotherapy; Z88.8 Allergy status to other drugs, medicaments and biological substances; Z79.52 Long term (current) use of systemic steroids
CPT/HCPCS: 36415; 80053; 82565; 83605; 85025; 87040; 87070; 87205; 96361; 96365; 96375; 99284

== ENCOUNTER 2018-11-25 09:50 | Day surgery (SDC) | payer MEDICARE, OTHER ==
[~2018-11-25 09:50] MED LIST changes: +ASPIRIN 325 MG TAB PO ONE; -DEXAMETHASONE SOD PHOSPHATE 10 MG/ML 1 ML VIAL IV ONE; -FUROSEMIDE 10 MG/ML 2 ML VIAL ONE; -GLYCOPYRROLATE 0.2 MG/ML 2 ML VIAL ONE; -LACTATED RINGERS 1,000 ML IV SCH; -LIDOCAINE 1% 20 ML VIAL (10MG/ML) FOR IV START INTRADERMA PRN; -LIDOCAINE 1% INJ 10MG/ML (20 ML MDV) ONE; -MIDAZOLAM (PF) 2 MG/2 ML VIAL IV PRN; -MIDAZOLAM 2 MG/2 ML VIAL ONE; -NEOSTIGMINE 1 MG/ML 10 ML VIAL ONE; -ONDANSETRON 4 MG/2 ML VIAL IVP ONE; -PROPOFOL 10 MG/ML 20 ML VIAL IV ONE; -ROCURONIUM BROMIDE 10 MG/ML 10 ML VIAL IV ONE; -SCOPOLAMINE 1.5MG/72HR PATCH TRANSDERM ONE; +SODIUM CHLORIDE 0.9% 1,000 ML in EMPTY BAG 1 BAG IV ONE; -ceFAZolin 1,000 MG in DEXTROSE/WATER 1 50ML.BAG IVPB ONE; -ePHEDrine SULFATE/0.9% NACL/PF 50 MG/5 ML SYRINGE IV ONE; -fentaNYL (PF) 50 MCG/ML 2 ML AMP IVP ONE; -fentaNYL (PF) 50 MCG/ML 2 ML AMP ONE
[2018-11-25 11:29] VITALS: RESP 18; TEMP 98
[2018-11-25] MEDS ORDERED: PANTOPRAZOLE 40 MG TABLET PO STA (12:24)
[2018-11-25] MEDS ORDERED: hydrALAZINE HCL 20 MG/ML 1 ML VIAL ONE (13:01)
[2018-11-25] MEDS ORDERED: MIDAZOLAM (PF) 2 MG/2 ML VIAL IV ONE (13:46)
[2018-11-25] MEDS ORDERED: LIDOCAINE 1% INJ 10MG/ML (20 ML MDV) SQ ONE (13:51)
[2018-11-25] MEDS ORDERED: hydrALAZINE HCL 20 MG/ML 1 ML VIAL IV ONE (13:52)
[2018-11-25] MEDS ORDERED: IOPAMIDOL-250 100ML BTL INTRAARTER ONE ×2 (14:05)
[2018-11-25] MEDS ORDERED: SODIUM CHLORIDE 0.9% 1,000 ML IV SCH (14:15)
--- NOTE | 2018-11-25 14:26 | IR ---
EXAMINATION TYPE: IR angio abdominal w runoff DATE OF EXAM: 11/25/2018 CLINICAL HISTORY: Right leg pain. Peripheral vascular disease. TECHNIQUE: Fluoroscopy. COMPARISON: None. FINDINGS: Fluoroscopic guidance was provided during abdominal angiogram with lower extremity runoff procedure performed by Dr. Parson. A total of 1.7 minutes of fluoroscopic time was utilized during the procedure and several cine runs are acquired. Images acquired to access via right groin with angiogram and runoff. Refer to procedure note for furt her details as I was not present or performed procedure. IMPRESSION: As Above.
--- NOTE | 2018-11-25 14:43 | AN ---
ANGIOGRAPHY REPORT DATE OF SERVICE: November 25, 2018 PERFORMING PHYSICIAN: Da Parson MD, vp respiratory. PROCEDURE PERFORMED: 1. An abdominal aortogram. 2. Bilateral lower extremities runoff. INDICATION: This is a 73-year-old gentleman who was sent to me by Dr. Diaz for further evaluation of peripheral arterial disease. The patient recently underwent an amputation of the right baby toe. Dr. Diaz was concerned about severe underlying artery disease and because of that, he was referred to be seen. APPROACH: Right common femoral artery. COMPLICATION: None. LEVEL OF SEDATION: Moderate with sedation length of 13 minutes. PROCEDURE DESCRIPTION: After obtaining informed consent, the patient was brought to the cardiac laboratory sample carrier. The right common femoral artery was cannulated using micropuncture technique, the micropuncture wire passed easily then I placed a 5-Grenadian sheath. I did an abdominal aortogram and bilateral lower extremities runoff using 5-Grenadian pigtail catheter which was initially placed at the level of the renal arteries then it was pulled into above the bifurcation of the aorta to right and left common iliac arteries. After that I did selective right common femoral artery angiogram with injection through the sheath. The procedure was completed without any complication. SELECTIVE PERIPHERAL ANGIOGRAM: 1. The aorta appeared to be angiographically normal. 2. Iliac arteries: The right and left common iliacs, internal iliacs, and external iliacs appeared to be angiographically normal. 3. Common femoral arteries: Both are angiographically normal. 4. Profunda: Both are angiographically normal. 5. SFA: The right SFA has a tight lesion right at the Jesus canal. The left SFA appeared to be angiographically normal. 6. Below the knee: There are 3 vessels runoff below the knee bilaterally. 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 POSTPROCEDURE MANAGEMENT: The patient will be scheduled to undergo a COLLABORATIVE TEACHER of the right SFA. MMODL / IJN: [id number] /
[2018-11-25 17:33] VITALS: PULSE 70
[2018-11-25 17:42] VITALS: BP 131/73
== END 2018-11-25 20:16 | disposition home or self-care (01) ==
LOC: CATHCVL 09:50 → 3SCARD 14:03 → CATHCVL 20:16
PROVIDERS: ATTEND Internal Medicine Interventional Cardiology
DX: E11.51 Type 2 diabetes mellitus with diabetic peripheral angiopathy without gangrene (principal); I70.239 Atherosclerosis of native arteries of right leg with ulceration of unspecified site; L97.919 Non-pressure chronic ulcer of unspecified part of right lower leg with unspecified severity; Z89.421 Acquired absence of other right toe(s); Z79.891 Long term (current) use of opiate analgesic; Z79.899 Other long term (current) drug therapy
CPT/HCPCS: 36200; 75625; 75716; C1769 ×4; C1894; J0360; J2001; Q9966; J2250

== ENCOUNTER 2018-12-24 10:41 | Emergency (ER) | payer OTHER ==
[2018-12-24 10:48] VITALS: RESP 18
[2018-12-24] MEDS ORDERED: SODIUM CHLORIDE 0.9% 500 ML 500 ML IV ONE (10:57)
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
[2018-12-24 11:54] LABS: Anisocytosis Slight; Basophils # (A) 0.1 k/uL (0-0.2); Basophils % (A) 1 %; Eosinophils # (A) 0.2 k/uL (0-0.7); Eosinophils % (A) 3 %; HCT 36.6 % (39.0-53.0); HGB 11.6 gm/dL (13.0-17.5); Hypochromasia Marked; Lymphocytes # (A) 1.8 k/uL (1.0-4.8); Lymphocytes % (A) 19 %; MCH 23.1 pg (25.0-35.0); MCHC 31.5 g/dL (31.0-37.0); MCV 73.2 fL (80.0-100.0); Mean Platelet Volume 6.6; Microcytosis Moderate; Monocytes # (A) 0.6 k/uL (0-1.0); Monocytes % (A) 7 %; Neutrophils # (A) 6.7 k/uL (1.3-7.7); Neutrophils % (A) 70 %; Platelet Count 339 k/uL (150-450); WBC 9.7 k/uL (3.8-10.6)
[2018-12-24 12:04] LABS: ALT 23 U/L (21-72); AST 33 U/L (17-59); African American GFR (CKD) >90 (>60 ml/min/1.73 sqM); Albumin 3.8 g/dL (3.5-5.0); Alcohol <10 mg/dL; Alkaline Phosphatase 80 U/L (38-126); Anion Gap 10 mmol/L; Blood Urea Nitrogen 13 mg/dL (9-20); Calcium 9.1 mg/dL (8.4-10.2); Carbon Dioxide 24 mmol/L (22-30); Chloride 106 mmol/L (98-107); Glucose 94 mg/dL (74-99); Potassium 3.6 mmol/L (3.5-5.1); Sodium 140 mmol/L (137-145); Total Bilirubin 0.8 mg/dL (0.2-1.3); Total Protein 6.4 g/dL (6.3-8.2)
[2018-12-24 13:10] LABS: Amphetamine Screen,Urine Not Detected (NotDetected); Barbiturate Screen,Urine Not Detected (NotDetected); Benzodiazepines Screen,Urine Detected (NotDetected); Cocaine Screen,Urine Not Detected (NotDetected); Methadone Screen, Urine Not Detected (NotDetected); Opiate Screen,Urine Not Detected (NotDetected); Oxycodone Screen, Urine Not Detected (NotDetected); Phencyclidine Screen,Urine Not Detected (NotDetected); Tricyclic Antidepressant,Urine Not Detected (NotDetected); Urn Cannabinoid Scrn Not Detected (NotDetected)
--- NOTE | 2018-12-24 13:25 | CT ---
EXAMINATION TYPE: CT brain wo con DATE OF EXAM: 12/24/2018 COMPARISON: MRI 10/25/2017 INDICATION: Frequent falls, history of melanoma DLP: 1103.4 mGycm, Automated exposure control for dose reduction was used. CONTRAST: None CT of the brain is performed utilizing 3 mm thick sections through the posterior fossa and 3 mm thick sections through the remaining calvarium. Study is performed within 24 hours of arrival to the hosp ital. No abnormal hyperdensity is present to suggest an acute intracranial hemorrhage. There is a 2.2 cm mass lesion within the posterior medial left cerebellum. This may has some mass eff ect on the fourth ventricle. There is a 3.2 cm hyperdense lesion in the anterior medial right frontal lobe. This has some vasogeni c edema adjacent with some compression of the anterior horn right lateral ventricle. There is a mass lesion or superior right frontal lobe measuring 4.1 cm. This may be 2 adjacent conflu ent lesions. There is a 1.5 cm hyperdense lesion within the left frontal lobe with some adjacent vasogenic edema. These lesions are hyperdense which could be related to the melanoma. Small associated hemorrhage is n ot entirely excluded. There is a fluid level within a more right frontal inferior lesion which could be hemorrhage. Subarachnoid hemorrhage, subdural and epidural hematomas are not evident. Possibility of intraparenchymal hemorrhage was discussed with the emergency room physician. No acute infarcts are evident. Ventricles and sulci are appropriate for the patient age. There is some effacement and compression a djacent to the lesions and vasogenic edema. No hydrocephalus is evident. No temporal horn dilatation is evident. Paranasal sinuses and mastoid air cells within the [id number] are clear. IMPRESSIONS: 1. Bilateral mass lesions with vasogenic edema may reside both above and below the tentorium compat ible with metastatic lesions. These are hyperdense which could be related to melanoma metastasis. Hem orrhage is not entirely excluded. Report was called to the emergency room physician by Dr. Cheney by telephone 1318 hours 12/24/2018
[2018-12-24] MEDS ORDERED: DEXAMETHASONE SOD PHOSPHATE 10 MG/ML 1 ML VIAL IV STA (13:53)
[2018-12-24 14:12] VITALS: TEMP 98.2
[2018-12-24] MEDS ORDERED: hydrALAZINE HCL 20 MG/ML 1 ML VIAL IVP STA (14:17)
[2018-12-24 15:02] VITALS: BP 160/101; PULSE 74
== END 2018-12-24 14:45 | disposition other institution (70) ==
LOC: EC 10:41
DX: C79.31 Secondary malignant neoplasm of brain (principal); C80.1 Malignant (primary) neoplasm, unspecified; S50.312A Abrasion of left elbow, initial encounter; I10 Essential (primary) hypertension; K21.9 Gastro-esophageal reflux disease without esophagitis; Z79.51 Long term (current) use of inhaled steroids; Z79.899 Other long term (current) drug therapy; Z91.048 Other nonmedicinal substance allergy status; Z88.8 Allergy status to other drugs, medicaments and biological substances; Z88.1 Allergy status to other antibiotic agents; Z88.5 Allergy status to narcotic agent; Z87.891 Personal history of nicotine dependence; Z85.820 Personal history of malignant melanoma of skin; Z85.79 Personal history of other malignant neoplasms of lymphoid, hematopoietic and related tissues
CPT/HCPCS: 96374; 96375; 36415; 93005; 80053; 83735; 85025; 80306; 80320; 70450; 99285; J0360; J1100